=== PATIENT | male | born 1945 | race Caucasian/White ===

== ENCOUNTER 2018-08-22 11:20 | Day surgery (SDC) | payer MEDICARE ==
[2018-08-22] MEDS ORDERED: ONDANSETRON HCL INJ/PF 4 MG/2 ML SDV ONE (11:58)
[2018-08-22] MEDS ORDERED: DIPHENHYDRAMINE HCL 50 MG/ML VIAL ONE (11:58)
[2018-08-22] MEDS ORDERED: GLUCAGON,HUMAN RECOMB 1 MG INJ ONE (11:59)
[2018-08-22] MEDS ORDERED: NALOXONE HCL INJ/PF 0.4 MG/1 ML SDV ONE (11:59)
[2018-08-22] MEDS ORDERED: FLUMAZENIL INJ 0.5 MG/5 ML VIAL ONE (11:59)
[2018-08-22] MEDS ORDERED: EPINEPHRINE INJ 1 MG/10 ML DISP.SYRIN ONE (11:59)
[2018-08-22] MEDS: MIDAZOLAM 2 MG/2 ML INJ ONE ×2 (12:24→12:28)
[2018-08-22] MEDS: FENTANYL CITRATE INJ/PF 100 MCG/2 ML AMPUL ONE ×2 (12:26→12:30)
--- NOTE | 2018-08-22 13:22 | Operative Report ---
Operative Report DATE OF SURGERY: 08/22/18 Operative Report: The risks, benefits and alternatives of the procedure including the risks of bleeding, perforation requiring surgery have been explained to the patient in detail and informed consent has been obtained. The patient is taken back to to the endoscopy suite and placed in the left, lateral decubital position. Timeout was called. Conscious sedation medication is administered. A rectal examination is done which did not reveal any masses, tears or fissures. An Olympus videoscope is introduced into the patient's rectum. The scope was then carefully advanced all the way to the cecum. The cecum was identified by the usual anatomical landmarks of the ileocecal valve as well as the appendiceal office. Photodocumentation is obtained. The scope was then sequentially pulled back via the various segments of the colon including the ascending colon, hepatic flexure, transverse colon, splenic flexure, descending colon and finally into the rectosigmoid portions of the colon. Retroflexion maneuver is performed. PREOPERATIVE DIAGNOSIS: Heme positive stools POSTOPERATIVE DIAGNOSIS: Normal colonoscopy except for some internal hemorrhoids OPERATION: Diagnostic colonoscopy SURGEON: RACHEAL PEACE ANESTHESIA: Moderate Sedation - 4 mg of Versed, 75 mcg of fentanyl. Conscious sedation monitoring time 30 minutes. TISSUE REMOVED OR ALTERED: As noted above. COMPLICATIONS: None. ESTIMATED BLOOD LOSS: None. INTRAOPERATIVE FINDINGS: As noted above. PROCEDURE: Patient tolerated the procedure well. No immediate postprocedure complications are noted. Patient discharged in good condition. Discharge date 08/22/2018. Discharge diet: Regular. Discharge activity: Regular. 2-3-week follow-up to discuss findings. Patient is instructed call the office or proceed to the emergency room should there be any further problems or questions. If continues to have heme positive stools may need upper endoscopy.
[2018-08-22 13:48] VITALS: BP 105/59
== END 2018-08-22 13:40 | disposition home or self-care (01) ==
LOC: END 11:20
PROVIDERS: ATTEND Internal Medicine Gastroenterology
DX: K64.8 Other hemorrhoids (principal); R19.5 Other fecal abnormalities; E78.5 Hyperlipidemia, unspecified; I11.9 Hypertensive heart disease without heart failure; I25.2 Old myocardial infarction; Z79.891 Long term (current) use of opiate analgesic; Z79.82 Long term (current) use of aspirin; Z79.02 Long term (current) use of antithrombotics/antiplatelets; Z79.899 Other long term (current) drug therapy; Z88.5 Allergy status to narcotic agent; Z95.0 Presence of cardiac pacemaker
CPT/HCPCS: 45378; J2250; J3010; J0171; J1200; J1610; J2310; J2405; J3490

== ENCOUNTER 2018-12-16 13:33 | Emergency (ER) | payer OTHER, MEDICARE ==
[2018-12-16 13:42] VITALS: BP 131/49
[2018-12-16] MEDS ORDERED: LIDOCAINE 5% (700 MG) TRANSDERMAL ADH..PATCH TP ONE (14:14)
[2018-12-16] MEDS ORDERED: METHOCARBAMOL 750 MG TABLET PO ONE (14:14)
[2018-12-16] MEDS ORDERED: ACETAMINOPHEN 325 MG TABLET PO ONE (14:14)
[2018-12-16] MEDS ORDERED: IBUPROFEN 600 MG TABLET PO ONE (14:14)
[2018-12-16] MEDS ORDERED: PREDNISONE 20 MG TABLET PO ONE (14:14)
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
== END 2018-12-16 14:32 | disposition home or self-care (01) ==
LOC: ER 13:33
DX: M54.5 Low back pain (principal); V89.2XXA Person injured in unspecified motor-vehicle accident, traffic, initial encounter; I25.10 Atherosclerotic heart disease of native coronary artery without angina pectoris; I10 Essential (primary) hypertension; I25.2 Old myocardial infarction; Z95.1 Presence of aortocoronary bypass graft
CPT/HCPCS: 99283; J3490; J7512

== ENCOUNTER 2019-03-30 15:55 | Emergency (ER) | payer MEDICARE ==
--- NOTE | 2019-03-30 16:12 | ER Document Report ---
ED Medical Screen (RME) - General Chief Complaint: Laceration Stated Complaint: KNEE LACERATION Time Seen by Provider: 03/30/19 16:09 Primary Care Provider: HARDIK FONTENOT NP [Primary Care Provider] - Follow up as needed Notes: 73-year-old male presented to ED for laceration to the left knee. He was cutting a small tree with a chainsaw when the chainsaw kicked back and cut his knee. The bleeding is under control at this time. I have placed a wet dressing and Ant wrap back on it. We will get x-rays. It will need sutures. He needs a tetanus shot today. He is on Plavix and aspirin and has a defibrillator. Patient is alert oriented respirations regular and unlabored speaking in full sentences. I have greeted and performed a rapid initial assessment of this patient. A comprehensive ED assessment and evaluation of the patient, analysis of test results and completion of medical decision making process will be conducted by an additional ED providers. You would like TRAVEL OUTSIDE OF THE [place] IN LAST 30 DAYS: No - Related Data Allergies/Adverse Reactions: meperidine HCl [From Demerol] Adverse Reaction (Intermediate, Verified 03/30/19 15:56) Blood pressure drops Past Medical History - Past Medical History Cardiac Medical History: Reports: Hx Coronary Artery Disease - HX. "HEART DISEASE", Hx Heart Attack - [place] 1991, QUADRUPLE BYPASS 1992, Hx Hypertension Pulmonary Medical History: Reports: Hx Bronchitis - HX. OF BRONCHITIS, NOT C HRONIC Denies: Hx Asthma, Hx COPD, Hx Pneumonia Neurological Medical History: Denies: Hx Cerebrovascular Accident, Hx Seizures Renal/ Medical History: Denies: Hx Peritoneal Dialysis Musculoskeltal Medical History: Reports Hx Arthritis Past Surgical History: Reports: Hx Appendectomy, Hx Cardiac Surgery - Immunizations Hx Diphtheria, Pertussis, Tetanus Vaccination: Yes Influenza Administration Date for 04/2017 - 09/2017 Season: 04/17/18 Physical Exam - Vital signs Vitals: Temp Pulse Resp BP Pulse Ox 97.9 F 61 16 111/68 96 03/30/19 16:05 03/30/19 16:05 03/30/19 16:05 03/30/19 16:05 03/30/19 16:05 Course - Vital Signs Vital signs: Temp Pulse Resp BP Pulse Ox 97.9 F 61 16 111/68 96 03/30/19 16:05 03/30/19 16:05 03/30/19 16:05 03/30/19 16:05 03/30/19 16:05 Doctor's Discharge - Discharge Referrals: HARDIK FONTENOT NP [Primary Care Provider] - Follow up as needed
[2019-03-30] MEDS ORDERED: DIPH/PERTUSS(ACELL)/TETANUS VAC/PF 0.5 ML SYR (>=10YO) IM ONE (16:13)
[2019-03-30] MEDS ORDERED: ACETAMINOPHEN 325 MG TABLET PO ONE (16:15)
[2019-03-30 16:56] LABS: ABSOLUTE BASOPHILS # (AUTO) 0.1 10^3/uL (0.0-0.2); ABSOLUTE EOSINOPHILS # (AUTO) 0.1 10^3/uL (0.0-0.6); ABSOLUTE LYMPHOCYTES (AUTO) 1.2 10^3/uL (0.5-4.7); ABSOLUTE MONOCYTES (AUTO) 0.7 10^3/uL (0.1-1.4); ABSOLUTE NEUT (AUTO) 4.4 10^3/uL (1.7-8.2); BASOPHILS % (AUTO) 0.8 % (0-2); EOSINOPHILS % (AUTO) 2.1 % (0-6); HEMATOCRIT 35.5 % (37.9-51.0); HEMOGLOBIN 11.7 g/dL (13.5-17.0); LYMPHOCYTES % (AUTO) 18.8 % (13-45); MEAN CORPUSCULAR HGB CONC 32.9 g/dL (32.0-36.0); MEAN CORPUSCULAR VOLUME 82 fl (80-97); MONOCYTES % (AUTO) 10.4 % (3-13); PLATELET COUNT 203 10^3/uL (150-450); RED BLOOD COUNT 4.33 10^6/uL (4.35-5.55); RED CELL DISTRIBUTION WIDTH 16.1 % (11.5-14.0); SEGMENTED NEUTROPHILS % (AUTO) 67.9 % (42-78); TOTAL CELLS COUNTED % (AUTO) 100 %; WHITE BLOOD COUNT 6.5 10^3/uL (4.0-10.5)
[2019-03-30 17:03] LABS: INTERNATIONAL RATION (INR) 1.01; PROTHROMBIN TIME 13.3 SEC (11.4-15.4)
[2019-03-30 17:04] LABS: PARTIAL THROMBOPLASTIN TIME 24.9 SEC (23.5-35.8)
[2019-03-30 17:15] LABS: ALBUMIN 4.7 g/dL (3.5-5.0); ALKALINE PHOSPHATASE 46 U/L (38-126); ANION GAP 11 (5-19); ASPARTATE AMINO TRANSFERASE 22 U/L (17-59); BILIRUBIN,DIRECT 0.1 mg/dL (0.0-0.4); BILIRUBIN,TOTAL 0.3 mg/dL (0.2-1.3); BLOOD UREA NITROGEN 26 mg/dL (7-20); CALCIUM 9.8 mg/dL (8.4-10.2); CARBON DIOXIDE 25 mmol/L (22-30); CHLORIDE 108 mmol/L (98-107); GLUCOSE 90 mg/dL (75-110); POTASSIUM 4.2 mmol/L (3.6-5.0); TOTAL PROTEIN 7.1 g/dL (6.3-8.2)
--- NOTE | 2019-03-30 17:38 | RADIOLOGY REPORT (SQ) ---
EXAM DESCRIPTION: KNEE LEFT 4 VIEW COMPLETED DATE/TIME: 03/30/2019 5:26 pm REASON FOR STUDY: Laceration left knee chainsaw COMPARISON: None. NUMBER OF VIEWS: Four views. TECHNIQUE: AP, lateral, and both oblique radiographic images acquired of the left knee. LIMITATIONS: None. FINDINGS: MINERALIZATION: Normal. BONES: No acute fracture or dislocation. No worrisome bone lesions. JOINT: No effusion. SOFT TISSUES: No soft tissue swelling. No radio-opaque foreign body. OTHER: No other significant finding. IMPRESSION: NEGATIVE STUDY OF THE LEFT KNEE. NO RADIOGRAPHIC EVIDENCE OF ACUTE INJURY. TECHNICAL DOCUMENTATION: JOB ID: [id number] [employer]- All Rights Reserved Reading location - IP/workstation name: [email or web address]
[2019-03-30] MEDS ORDERED: NORMAL SALINE 1000 ML 1,000 ML IV ONE (18:16)
[2019-03-30] MEDS ORDERED: LIDOCAINE 1% INJ-PF (10 MG/ML) 30 ML SDV INJ ONE (18:16)
--- NOTE | 2019-03-30 18:24 | ER Document Report ---
ED General - General Chief Complaint: Laceration Stated Complaint: KNEE LACERATION Time Seen by Provider: 03/30/19 16:09 Primary Care Provider: LALI WHITING NP [Primary Care Provider] - Follow up as needed Notes: Patient is a 73-year-old male with a history of quadruple bypass, AICD placement, 3 cardiac stents, congestive heart failure who presents to the emergency department with a chief complaint of laceration to the left knee. Patient states prior to arrival he was cutting a small limit with a chainsaw whe n it jerked back and struck the left knee. Patient reports he is on Plavix and aspirin. Patient denies numbness or tingling to his lower extremities or distal to the extremity. Patient reports he was outside for long period of time this morning and did sweat a lot. Patient reports he did last urinated around 1 PM. Patient reports he does feel dry. Patient denies significant pain. Patient re ports his tetanus shot is not up-to-date. TRAVEL OUTSIDE OF THE [place] IN LAST 30 DAYS: No - Related Data Allergies/Adverse Reactions: meperidine HCl [From Demerol] Adverse Reaction (Intermediate, Verified 03/30/19 15:56) Blood pressure drops Past Medical History - General Information source: Patient - Social History Smoking Status: Never Smoker Frequency of alcohol use: None Drug Abuse: None Lives with: Spouse/Significant other Family History: None Patient has suicidal ideation: No Patient has homicidal ideation: No - Past Medical History Cardiac Medical History: Reports: Hx Coronary Artery Disease - HX. "HEART DISEASE", Hx Heart Attack - [place] 1991, QUADRUPLE BYPASS 1992, Hx Hypertension Pulmonary Medical History: Reports: Hx Bronchitis - HX. OF BRONCHITIS, NOT CHRONIC Denies: Hx Asthma, Hx COPD, Hx Pneumonia EENT Medical History: Reports: None Neurological Medical History: Reports: None. Denies: Hx Cerebrovascular Accident, Hx Seizures Endocrine Medical History: Reports: None Renal/ Medical History: Reports: None. Denies: Hx Peritoneal Dialysis Malignancy Medical History: Reports None GI Medical History: Reports: None Musculoskeletal Medical History: Reports Hx Arthritis Skin Medical History: Reports None Psychiatric Medical History: Reports: None Traumatic Medical History: Reports: None Infectious Medical History: Reports: None Past Surgical History: Reports: Hx Appendectomy, Hx Cardiac Surgery - Immunizations Hx Diphtheria, Pertussis, Tetanus Vaccination: Yes Review of Systems - Review of Systems Constitutional: No symptoms reported EENT: No symptoms reported Cardiovascular: No symptoms reported Respiratory: No symptoms reported Gastrointestinal: No symptoms reported Genitourinary: No symptoms reported Male Genitourinary: No symptoms reported Musculoskeletal: No symptoms reported Skin: See HPI Hematologic/Lymphatic: No symptoms reported Neurological/Psychological: No symptoms reported Physical Exam - Vital signs Vitals: Temp Pulse Resp BP Pulse Ox 97.9 F 61 16 111/68 96 03/30/19 16:05 03/30/19 16:05 03/30/19 16:05 03/30/19 16:05 03/30/19 16:05 Interpretation: Normal - Notes Notes: GENERAL: Well-appearing, well-nourished and in no acute distress. HEAD: Atraumatic, normocephalic. EYES: Pupils equal round and reactive to light, extraocular movements intact, sclera anicteric, conjunctiva are normal. ENT: Nares patent, oropharynx clear without exudates. Moist mucous membranes. NECK: Normal range of motion, supple without lymphadenopathy or JVD. LUNGS: Breath sounds clear to auscultation bilaterally and equal. No wheezes rales or rhonchi. HEART: Regular rate and rhythm without murmurs, rubs or gallops. ABDOMEN: Soft, nontender, normoactive bowel sounds. No guarding, no rebound. No masses appreciated. BACK: No cervical, thoracic, lumbar midline tenderness. No saddle anesthesia, normal distal neurovascular exam. GENITOURINARY: Deferred. EXTREMITIES: Normal range of motion, no pitting or edema. No clubbing or cyanosis. + 2 palpable dorsalis pedis, posterior tibial and popliteal pulses. Patient has good flexion-extension of the left foot. There is no surrounding ecchymosis or edema noted to the left knee. Patient does have 3 lacerations that appear slightly irregular. The 2 upper lacerations to the patella appear to be superficial. The laceration to the inferior patella slightly deeper and will require 1 or 2 sutures. NEUROLOGICAL: Cranial nerves II through XII grossly intact. Normal speech, normal gait. PSYCH: Normal mood, normal affect. SKIN: Warm, Dry, normal turgor, no rashes or lesions noted. Course - Re-evaluation Re-evalutation: 03/30/19 20:[address] the patient in the immobilizer to help keep the joint straight as he does have the sutures. Patient verbalized understanding. - Vital Signs Vital signs: Temp Pulse Resp BP Pulse Ox 97.9 F 61 16 111/68 96 03/30/19 16:05 03/30/19 16:05 03/30/19 16:05 03/30/19 16:05 03/30/19 16:05 - Laboratory Result Diagrams: 03/30/19 16:12 03/30/19 16:12 Laboratory results interpreted by me: 03/30/19 03/30/19 16:12 16:12 RBC 4.33 L Hgb 11.7 L Hct 35.5 L RDW 16.1 H Chloride 108 H BUN 26 H Creatinine 1.52 H Est GFR ( Amer) 55 L Est GFR (MDRD) Non-Af 45 L 03/30/19 18:24 Patient's lab work is negative for leukocytosis, anemia, abnormality in the coagulation studies. Patient does have an elevated BUN/creatinine of 26 and 1.52. Laboratory 03/30/19 03/30/19 03/30/19 16:12 16:12 16:12 WBC 6.5 RBC 4.33 L Hgb 11.7 L Hct 35.5 L MCV 82 MCH 27.0 MCHC 32.9 RDW 16.1 H Plt Count 203 Lymph % (Auto) 18.8 Roosevelt % (Auto) 10.4 Eos % (Auto) 2.1 Baso % (Auto) 0.8 Absolute Neuts (auto) 4.4 Absolute Lymphs (auto) 1.2 Absolute Monos (auto) 0.7 Absolute Eos (auto) 0.1 Absolute Basos (auto) 0.1 Seg Neutrophils % 67.9 PT 13.3 INR 1.01 APTT 24.9 Sodium 143.5 Potassium 4.2 Chloride 108 H Carbon Dioxide 25 Anion Gap 11 BUN 26 H Creatinine 1.52 H Est GFR ( Amer) 55 L Est GFR (MDRD) Non-Af 45 L Glucose 90 Calcium 9.8 Total Bilirubin 0.3 Direct Bilirubin 0.1 Neonat Total Bilirubin Not Reportable Neonat Direct Bilirubin Not Reportable Neonat Indirect Bili Not Reportable AST 22 ALT 20 Alkaline Phosphatase 46 Total Protein 7.1 Albumin 4.7 - Diagnostic Test Radiology reviewed: Reports reviewed Radiology results interpreted by me: 03/30/19 19:34 Knee X-Ray 03/30/19 16:13 IMPRESSION: NEGATIVE STUDY OF THE LEFT KNEE. NO RADIOGRAPHIC EVIDENCE OF ACUTE INJURY. Procedures - Laceration/Wound Repair Left Knee Time completed: 19:00 Wound length (cm): 3 Wound's Depth, Shape: Superficial, Irregular, Flap Laceration pre-procedure: Sterile PPE donned, Sterile drapes applied, Shur-Clens applied Anesthetic type: 1% Lidocaine Volume Anesthetic (mLs): 3 Wound explored: Clean Irrigated w/ Saline (mLs): 250 Wound Repaired With: Sutures Suture Size/Type: Ethilon Number of Sutures: 3 Post-procedure wound care: Sterile dressing applied Post-procedure NV exam normal: Yes Complications: No Notes: 03/30/19 19:29 3 lacerations noted to the left patella. These were mostly superficial. I did place 3 sutures to help bring the lacerations together. Steri-Strips placed along the areas that did not require sutures but appeared to be more as skin tears. Discharge - Discharge Clinical Impression: Elevated BUN, Elevated serum creatinine Laceration of knee Qualifiers: Encounter type: initial encounter Laterality: left Qualified Code(s): S81.012A - Laceration without foreign body, left knee, initial encounter Condition: Stable Disposition: HOME, SELF-CARE Instructions: Antibiotic Ointment Protection ([facility]), Laceration Care ([facility]), Soap Cleansing ([facility]), Tetanus Immunization Given ([facility]) Additional Instructions: Today you are seen in the emergency department after obtaining a laceration to the left knee. Most of these areas did appear superficial. I did have to place 3 sutures that need to be removed in the next 10 to 14 days. You may go to your primary care physician or return to the emergency department to have these removed. Please change in check your site daily and monitors for signs of infection to include swelling, redness, increased tenderness, red streaking up or down the leg or fever. Since her laceration is located on the kneecap you do need to limit your activity over the next few days as this is an area that the sutures could potentially rip through. You were also given a liter of fluid here in the emergency department. Your kidney function was slightly elevated. I have attached your lab work to your discharge instructions. Please follow-up with Lali Whiting to have your blood work rechecked to make sure that your kidney function is returning to normal. Please return the emergency department if your urine becomes darker than normal, if you have blood in the urine, or if you have inability to urinate. Laceration Care Your laceration has been sutured to keep the skin edges aligned during healing. The time of suture removal depends on the nature and location of your cut. Please follow the care instructions the doctor has outlined for you and return for further care, according to the schedule you've been given. Keep the wound and dressing clean. Unless you were told otherwise, you may shower daily, blotting the wound dry with a clean, unused towel. At other times, If the dressing gets wet or blood soaked, remove it and blot the wound dry, then reapply a new dressing. Unless you were instructed otherwise, dressings should be changed at least daily. If any signs of infection occur (swelling, redness, increasing tenderness, red streaks, tender lumps in the armpit or groin above the laceration, or fever), see the doctor immediately. Referrals: LALI WHITING NP [Primary Care Provider] - Follow up as needed
[2019-03-30 20:07] VITALS: BP 140/76
== END 2019-03-30 20:05 | disposition home or self-care (01) ==
LOC: ER 15:55
DX: S81.012A Laceration without foreign body, left knee, initial encounter (principal); W29.3XXA Contact with powered garden and outdoor hand tools and machinery, initial encounter; Y93.89 Activity, other specified; R79.89 Other specified abnormal findings of blood chemistry; I25.10 Atherosclerotic heart disease of native coronary artery without angina pectoris; I10 Essential (primary) hypertension; Z95.1 Presence of aortocoronary bypass graft; Z95.810 Presence of automatic (implantable) cardiac defibrillator; Z79.02 Long term (current) use of antithrombotics/antiplatelets; Z79.82 Long term (current) use of aspirin; Z95.5 Presence of coronary angioplasty implant and graft
CPT/HCPCS: 36415; 85025; 85610; 85730; 80053; 73564; 90715; 12002; L1830; A9270; J3490; J7030; 90471; 96360; 99283

== ENCOUNTER → 2019-05-16 | Day surgery (SDC) | payer MEDICARE ==
--- NOTE | 2019-05-16 15:11 | RADIOLOGY REPORT (SQ) ---
EXAM DESCRIPTION: ARTHRO SHOULDER INJECTION; FLUORO/NEEDLE PLACEMENT COMPLETED DATE/TIME: 05/16/2019 2:06 pm REASON FOR STUDY: M75.101 UNSP ROTATR-CUFF TEAR/RUPTR OF RIGHT SHOULDER, NOT TRAUMA M75.101 UNSP RO TATR-CUFF TEAR/RUPTR OF RIGHT SHOULDER, NOT T COMPARISON: None. FLUOROSCOPY TIME: 3 24 images saved to PACS. LIMITATIONS: None. PROCEDURE: Procedure, risks, benefits and alternatives explained to patient who then gave written co nsent. The right shoulder was marked and a time out was called for correct procedure verification. P osterior entry site marked using fluoroscopic guidance. Shoulder prepped and draped using sterile te chnique. Local anesthesia achieved using 1% lidocaine injection. Hypodermic needle introduced into the joint space under direct fluoroscopic visualization. Non-ionic contrast instilled to confirm intr a-articular position. Dilute gadolinium solution then injected. Needle removed and entry site covere d with sterile bandage. No immediate complications noted. TECHNIQUE: Digital images acquired during fluoroscopy and stored on PACS. Patient immediately take n to the MR suite for additional imaging. INJECTION LOCATION: Posterior right shoulder. CONTRAST TYPE AND AMOUNT: 5 cc 1% lidocaine, 1 cc Omnipaque, 12 cc Omnipaque saline mixture IMPRESSION: SUCCESSFUL NEEDLE PLACEMENT AND INJECTION FOR RIGHT SHOULDER MR ARTHROGRAM USING POSTERI OR APPROACH. COMMENT: Quality ID [id number]: Final reports for procedures using fluoroscopy that document radiation exp osure indices, or exposure time and number of fluorographic images (if radiation exposure indices are not available) TECHNICAL DOCUMENTATION: JOB ID: [id number] [employer]- All Rights Reserved Reading location - IP/workstation name: [email or web address]
--- NOTE | 2019-05-17 13:53 | RADIOLOGY REPORT (SQ) ---
EXAM DESCRIPTION: CT RT UPPER EXTREMITY WITH COMPLETED DATE/TIME: 05/16/2019 2:15 pm REASON FOR STUDY: M75.101 UNSP ROTATR-CUFF TEAR/RUPTR OF RIGHT SHOULDER, NOT TRAUMA M75.101 UNSP RO TATR-CUFF TEAR/RUPTR OF RIGHT SHOULDER, NOT T COMPARISON: None. TECHNIQUE: Axial imaging performed through the rightshoulder with reformatted oblique coronal and ob lique sagittal imaging windowed for bone and soft tissues. All CT scanners at this facility use dose modulation, iterative reconstruction, and/or weight based d osing when appropriate to reduce radiation dose to as low as reasonably achievable (ALARA). [facility]: Dose Right [facility]: CareDose [facility]: Dose Right [facility]: Teradose 4D [facility]: Altair Prep RADIATION DOSE: CT Rad equipment meets quality standard of care and radiation dose reduction techniq ues were employed. CTDIvol: 19.4 mGy. DLP: 455 mGy-cm. mGy. LIMITATIONS: Artifact from right side defibrillator. FINDINGS: There is contrast along the articular surface of the distal supraspinatus image 31 series 305. This extends partial thickness. No contrast in the subacromial bursa. Mild degenerative simmons es in the AC and glenohumeral joints. Visualize lungs are clear. IMPRESSION: Partial-thickness articular surface tear of the supraspinatus tendon. TECHNICAL DOCUMENTATION: JOB ID: [id number] Quality ID # [id number]: Final reports with documentation of one or more dose reduction techniques (e.g., Au tomated exposure control, adjustment of the mA and/or kV according to patient size, use of iterative reconstruction technique) 2010 [employer]- All Rights Reserved Reading location - IP/workstation name: [email or web address]
== END ==
LOC: RAD 13:08
PROVIDERS: ATTEND Family Medicine
DX: M75.101 Unspecified rotator cuff tear or rupture of right shoulder, not specified as traumatic (principal)
CPT/HCPCS: 23350; 77002